=== PATIENT | female | born 1970 | race Caucasian/White ===

== ENCOUNTER 2021-01-10 12:23 | Outpatient (CLI) | payer BC, SELFPAY ==
--- NOTE | ~2021-01-10 | XR_ITS ---
XR shoulder LT min 2V DATE: 01/10/2021 12:48 INDICATION: Left shoulder and humerus pain TECHNIQUE: 5 views COMPARISON: None FINDINGS: No fracture or dislocation, periosteal reaction or bone destruction. Normal alignment at th e acromioclavicular and glenohumeral joints. No abnormal soft tissue calcification. IMPRESSION: Negative left shoulder Reviewed, dictated and finalized at location B. IMPRESSION: Negative left shoulder
== END 2021-01-10 12:24 | disposition home or self-care (01) ==
LOC: CHSIMG 12:26
PROVIDERS: PCP Internal Medicine; Visit Provider Nurse Practitioner Family
DX: M25.512 Pain in left shoulder (principal)
CPT/HCPCS: 73030

== ENCOUNTER 2021-11-12 09:33 | Outpatient (CLI) | payer OTHER, SELFPAY ==
--- NOTE | ~2021-11-12 | MR_ITS ---
EXAMINATION: MR brain/brain stem wo con EXAM DATE: 11/12/2021 10:24 INDICATION: New onset of headaches-LT Side Mostly,X1.5yrs TECHNIQUE: Magnetic resonance imaging (MRI) of the brain/brain stem obtained without contrast. Kerwin wilson T1, axial diffusion, gradient echo (T2*), T1, T2, FLAIR sequences obtained. There is no prior st udy for comparison. FINDINGS: There are no areas of restricted diffusion to suggest acute infarction. There is no acute hemorrhage seen on the T2*, a hemosiderin sensitive sequence. No intraparenchymal brain mass. The ve ntricles are normal in size. There are no extra-axial collections. Flow voids are seen in the cereb ral arteries on the T2-weighted sequences consistent with their expected patency. The orbits are unr emarkable. Soft tissue is unremarkable. IMPRESSION: Unremarkable brain MRI examination. Reviewed, dictated and finalized at location G.
== END 2021-11-12 09:34 | disposition home or self-care (01) ==
LOC: CHSIMG 09:34
PROVIDERS: PCP Internal Medicine; Visit Provider Internal Medicine
DX: R51.9 Headache, unspecified (principal)
CPT/HCPCS: 70551

== ENCOUNTER 2025-06-20 11:06 | Outpatient (CLI) | payer BC, SELFPAY ==
--- OUTSIDE RECORDS SUMMARY | 2025-06-20 13:10 | XMS_ITS | Clinical Summary ---
Author Organization [facility] [address] Address [address] [employer] [address] Phone Care Team Providers Care Water Treatment Plant Engineer Name Role Phone Boom Valdovinos MD Primary Care Provider [phone] Allergies No known active allergies Medications escitalopram (LEXAPRO) 20 mg tablet Take 1 tablet (20 mg total) by mouth daily Active propranolol LA (INDERAL LA) 60 mg 24 hr capsule 2 Active valACYclovir (VALTREX) 500 mg tabletIndication s:Genital herpes simplex, unspecified site TAKE ONE TABLET BY MOUTH TWICE A DAY FOR 5 DAYS NEEDED WITH OUTBREAKS 30 tablet 3 4 Active estradiol-noreth indrone (ACTIVELLA) 1-0.5 mg per tabletIndication s:Menopausal symptoms Take 1 tablet by mouth daily 30 tablet 11 4 08/12/20 25 Active Active Problems Problem Noted Date Diagnosed Date Cervical high risk human pap illomavirus (HPV) DNA test positive 08/13/2023 Anxiety 05/15/2016 Overview (11/27/2016): Anxiety Obesity with body mass index 30 or greater 05/15 Overview (11/27/2016): BMI 30+ - obesity Genital herpes simplex 04/18/2013 Overview (11/29/2016): Genital herpes Surgical History Surgery Date Site/Laterality Comments APPENDECTOMY ENDOMETRIAL ABLATION W/ NOVBERTHA 08/24/2013 - 08/23/2014 LAPAROSCOPIC TUBAL LIGATION SECTION x 2 - , Medical History Medical History Date Comments Depression Depression Abnormal Pap smear of cervix LSI L- , . Resolved on repeat testing. Migraine headache Headache, migr yelena Family History Medical History Relation Name Comments Allergies Other 1 Family history of allergies; Hypertension Other 2 Family history of Hypertension; Uterine cancer Paternal Grandmother Relation Name Status Comments Other 1 Other 2 Paternal Grandmother Social History Tobacco Use Types Packs/Day Years Used Date Smoking Tobacco: Never Smokeless Tobacco: Never Tobacco Cessation:Counseling Given: Not Answered Alcohol Use Standard Drinks/Week Comments Yes 0 (1 standard drink = 0.6 oz pur e alcohol) AUDIT-C Answer Date Recorded Frequency of Alcohol Consumption Not on file 08/13/2023 Average Number of Drinks Not on file 023 Q3: How often do you have si x or more drinks on one occasion? 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 Not on file Not on file Not on file Obstetrics History Para Term AB IAB SAB Ectopic Multiple Livin g Live Births 2 2 2 0 0 2 Date Outcome GA Total Labor Labor/2nd/3rd Weight Sex Type Anes PTL Julianna A1 A5 Name Clin Term Term Last Filed Vital Signs Vital Sign Reading Time Taken Comments Blood Pressure 100/70 08/22/2024 8:42 AM EDUCATIONAL TECHNICIAN Pulse 72 05/03/2013 3:47 PM CDT Temperature 35.9 C (96.6 F) 06/25/2020 2:18 PM EDUCATIONAL TECHNICIAN Respiratory Rate - - Oxygen Saturation - - Inhaled Oxygen Concentration - - Weight 96.2 kg (212 lb) 08/22/2024 8:42 AM EDUCATIONAL TECHNICIAN Height 167.6 cm (5' 6) 08/12/2024 8:51 AM EDUCATIONAL TECHNICIAN Body Mass Index 34.22 08/12/2024 8:51 AM EDUCATIONAL TECHNICIAN Plan of Treatment Health Maintenance Due Date Last Done Comments Colon Cancer Screening-Colonoscopy 1969 Depression Screening 1969 Hepatitis C Screening 1969 Hepatitis B Screening 12/23/1987 Zoster Vaccine (1 of 2) 12/23/2019 Influenza Vaccine (#1) 2025 Breast Cancer Screening-Mammogram 08/12/2025 08/12/2024, 08/05/2023, 07/11/2022, Additional history exists Cervical Cancer Screening 08/12/20252023, 08/12/2024, 08/05/2023, Additional history exists Regular Well Visit/Exam 18-64 08/12/2025 08/12/2024, 08/05/2023, 07/11/2022, Additional history exists DTaP/Tdap/Td Vaccine (3 - Td or Tdap) 03/08/2027 03/08/2017, 03/31/2014 Pneumococcal vaccine <65 Aged Out No longer eligible based on patient's age to complete this topic Procedures Procedure Name Priority Date/Time Associated Diagnosis Comments HIGH RISK HPV DNA DETECTION WITH GENOTYPING Routine 08/12/2024 10:51 AM EDUCATIONAL TECHNICIAN Screening for malignant neoplasm of the cervix Mild dysplasia of cervix SCREENING MAMMOGRAM BILATERAL W SHIV Schedule Routine, Read Routine (OP Routine) 08/12/2024 8:39 AM EDUCATIONAL TECHNICIAN Encounter for screening mammogram for malignant neoplasm of breast from Last 3 Months or Most Recently Relevant to Health Maintenance Results * (ABNORMAL) High Risk HPV DNA Detection with Genotyping (Molecular component) (08/12/2024 10:51 AM EDUCATIONAL TECHNICIAN) HPV HR 16 Detected(A) Not Detected [facility] Comment:Testing performed by : [facility], [address] [place]., [address] HPV HR 18 Not Detected Not Detected [facility] Comment:Testing performed by : [facility], [address] [facility] [place]., [address] HPV HR Non 16/18 Not Detected Not Detected [facility] Comment: Interpretive Data Nucleic acid amplification for detection of high-risk Human Papilloma virus (HPV) is performed by the Reilly Lluvia 6800 HPV test. This assay specifically detects HPV-16 and HPV-18 genotypes. The following HPV genotypes are detected as high-risk HPV: HPV-31, 33, 35, ,39, 45, 51, 52, 56, 58, 59, 66, and 68. This assay has been approved by the [place] Food and Drug Administration for detection of HPV in cervical specimens collected by a physician using an endocervical brush/spatula or cervical broom and placed in the ThinPrep Pap Test PreservCyt collection containers. The performance characteristics of this test have been verified by the [facility] laboratory. Correlate with separately reported cytology results, as applicable. Interpretive data last revised 23 Testing performed by: [facility], [address] [place] [address]., [id number] Endocervical 08/12/2024 10:5 1 AM EDUCATIONAL TECHNICIAN 08/15/2024 5:02 PM EDUCATIONAL TECHNICIAN Narrative NIYAH JOSUE - 08/16/2024 1:09 AM EDUCATIONAL TECHNICIAN Clinical history and diagnosis->DX Z12.4 N87.0 07/2023- NILM,HPV POSITIVE (+16) COLPOSCOPY- YARITZA I Testing type->Screening Last menstrual period (date if known)->N/A Previous positive HPV history?->Yes Date of positive HPV->07/2023 Previous negative PAP?->No Alicia Wilson MD LAB BODY FLUIDS AND S TOOLS ORDERABLES Final Result [facility] JOSUE [id number] Department [place] [address] [facility] * Screening Mammogram Bilateral W Shiv (08/12/2024 8:39 AM EDUCATIONAL TECHNICIAN) Anatomical Region Laterality Modality Breast Bilateral Mammography 08/12/2024 12:0 2 PM EDUCATIONAL TECHNICIAN Impressions 08/12/2024 12:02 PM EDUCATIONAL TECHNICIAN There is no mammographic evidence of malignancy. A 1 year screening mammogram is recommended. BI-RADS: 1 - Negative. The patient has been or will be contacted. The patient will be entered into a reminder system with a target due date of 1 year for her next mammogram. Electronically signed by: Gwendolyn Hoffman M.D. Narrative 08/12/2024 12:02 PM EDUCATIONAL TECHNICIAN EXAMINATION: SCREENING MAMMOGRAM BILATERAL W SHIV ORDERING HEALTHCARE PROVIDER: ALICIA WILSON HISTORY: Routine screening mammography. COMPARISON: 08/05/2023, 06/27/2021, 06/25/2020, 06/22/2019 TECHNIQUE: CC and MLO views of the bilateral breasts were obtained with digital technique using breast tomosynthesis with C view. Computer aided detection was utilized. FINDINGS: DENSITY: The breasts are almost entirely fatty. BREASTS: There are no suspicious masses, suspicious calcifications, or other suspicious findings in either breast. There has been no suspicious interval change. Alicia Wilson MD IMG MAMMO PROCEDURES Final Result from Last 3 Months or Most Recently Relevant to Health Maintenance Insurance FOR[facility]LY [facility], [facility] CHOICE PLUS [facility] HMO/PPO Address: [address] [place], [place] [id number] [facility] CHOICE PL[facility] HMO/PPO Address: [address] [place], [place] [id number] Care Teams Water Treatment Plant Engineer Relationship Specialty Start Date End Date Boom Valdovinos MD PCP - General 11/21/16
--- OUTSIDE RECORDS SUMMARY | 2025-06-20 13:10 | XMS_ITS | Clinical Summary ---
Author Organization [facility] Address [address] [place] [address] Care Team Providers Care Gasoline Service Attendant Name Role Phone Prakash Duque MD Primary Care Provider [phone] Source Comments [facility],non-owned Affiliates and Associated Physician Practices is amultiple site organization consisting of ambulatory clinics and hospital sitesin [place], [place], [place]. This disclosure is being madepursuant to the Care Everywhere program and may not contain all information available regarding this patient. Last updated 18.[facility] Allergies No known active allergies Medications * Be aware that medications may not be up to date on this document. Alwaysverify current medications with the patient. estradiol-noreth indrone (ACTIVELLA) 1-0.5 MG tablet Take 1 tablet by mouth 7 Active venlafaxine XR 24hr (EFFEXOR XR) 37.5 MG capsule once daily 0 8 Active doxycycline monohydrate 100 MG tablet Take 1 tablet by mouth 2 times daily 90 day supply 180 tablet 2 8 Active metroNIDAZOLE (METROGEL) 0.75 % gel Apply to affected area 2 times daily 45 g 5 8 Active Active Problems No known active problems Family History Medical History Relation Name Comments Cancer - Skin, Non Melanoma Father Asthma Neg Hx CVA Neg Hx Cancer - Breast Neg Hx Cancer - Other Neg Hx Cancer - Skin, Melanoma Neg Hx Eczema Neg Hx Hemophilia Neg Hx Psoriasis Neg Hx Relation Name Status Comments Father Social History Tobacco Use Types Packs/Day Years Used Date Smoking Tobacco: Never Smokeless Tobacco: Never Alcohol Use Standard Drinks/Week Comments No 0 (1 standard drink = 0.6 oz pur e alcohol) Comments Unknown Sex and Gender Information Value Date Recorded Sex Assigned at Not on file Legal Sex Female 1:24 PM CDT Gender Identity Not on file Sexual Orientation Not on file Plan of Treatment Health Maintenance Due Date Last Done Comments COLOGUARD (AGES 45-75) - COL ON CA SCREENING 1969 COLON MONITORING 1969 COLONOSCOPY - COLON CA SCREENING 1969 CT COLONOGRAPHY - COLON CA SCREENING 1969 Colorectal Cancer Screening 1969 FIT - COLON CA SCREENING 1969 FLEX SIG - COLON CA SCREENING 1969 LIPID TESTING 1969 MAMMOGRAM 1969 HIV SCREENING 1984 HEPATITIS C SCREENING 12/18/1987 DTAP/TDAP/TD VACCINES (1 - Tdap) 1988 HEPATITIS B VACCINE (1 of 3 - 19+ 3-dose series) 1988 PNEUMOCOCCAL VACCINE 50+ (1 of 1 - PCV) 12/23/2019 ZOSTER VACCINE (1 of 2) 12/23/2019 DEPRESSION SCREENING 08/24/2024 COVID-19 VACCINE (1 - 2023-2 5 season) 2025 INFLUENZA VACCINE (#1) 2025 HIB VACCINE Aged Out No longer eligi ble based on patient's age to complete this topic HPV VACCINE Aged Out No longer eligi ble based on patient's age to complete this topic MENINGOCOCCAL (Group B) VACC INE SHARED DECISION-MAKING Aged Out No longer eligibl e based on patient's age to complete this topic MENINGOCOCCAL GROUPS A/C/Y/W VACCINE Aged Out No longer eligible b ased on patient's age to complete this topic Insurance [facility] Care Teams Gasoline Service Attendant Relationship Specialty Start Date End Date Prakash Duque MD [address] [place] [address] PCP - General 04/22/18
== END 2025-06-20 11:07 | disposition home or self-care (01) ==
LOC: CHSLAB 11:09
PROVIDERS: PCP Internal Medicine; Visit Provider Internal Medicine
DX: R21 Rash and other nonspecific skin eruption (principal)
CPT/HCPCS: 87206